=== PATIENT | female | born 1990 | race American Indian/Alaskan Native ===

== ENCOUNTER 2022-02-11 13:25 | Emergency (ER) | payer SELFPAY ==
[2022-02-11] MEDS ORDERED: SODIUM CHLORIDE 0.9% 1000 ML 1,000 ML IV ONE (23:31)
[2022-02-11] MEDS ORDERED: METOCLOPRAMIDE 10 MG/2 ML INJ IV ONE (23:32)
[2022-02-11] MEDS ORDERED: diphenhydrAMINE 50 MG/ML VIAL IV ONE (23:32)
--- NOTE | 2022-02-11 23:37 | Emergency Department Report ---
ED Abdominal Pain HPI - General Chief Complaint: Nausea/Vomiting/Diarrhea Stated Complaint: WEAK/VOMITING/CANT EAT Time Seen by Provider: 02/11/22 23:31 Source: patient Mode of arrival: Ambulatory Limitations: No Limitations - History of Present Illness Initial Comments: Patient is a 32-year-old female G1, who presents for bilateral diabetic by malaise nausea vomiting x1 week. Patient has not seen [facility] did have positive test at home today. Ice menstrual cycle 6 weeks ago. Symptoms are exacerbated by p.o. intake. Symptoms are relieved by nothing tried. Patient denies vaginal bleeding no spotting no frequency urgency or dysuria. Is been no fevers or chills MD Complaint: abdominal pain - Related Data Previous Rx's Medication Instructions Recorded Last Taken Type Metoclopramide [Reglan] 10 mg PO TID #15 tab 02/12/22 Unknown Rx diphenhydrAMINE HCL 12.5 mg PO Q6H PRN #15 tab 02/12/22 Unknown Rx [Diphenhydramine HCl] Allergies Allergy/AdvReac Type Severity Reaction Status Date / Time No Known Allergies Allergy Verified 02/11/22 17:22 ED Review of Systems ROS: Stated complaint: WEAK/VOMITING/CANT EAT Other details as noted in HPI Constitutional: denies: chills, fever Eyes: denies: eye pain, eye discharge, vision change ENT: denies: ear pain, throat pain Respiratory: denies: cough, shortness of breath, wheezing Cardiovascular: denies: chest pain, palpitations Endocrine: no symptoms reported Gastrointestinal: abdominal pain, nausea, vomiting. denies: diarrhea, constipation, hematemesis, melena, hematochezia Genitourinary: denies: urgency, dysuria, frequency, hematuria, discharge, dyspareunia Musculoskeletal: back pain Skin: denies: rash, lesions Neurological: denies: headache, weakness, numbness, paresthesias, confusion, vertigo Psychiatric: denies: anxiety, depression Hematological/Lymphatic: denies: easy bleeding, easy bruising ED Past Medical Hx - Medications Home Medications: Home Medications Medication Instructions Recorded Confirmed Last Taken Type Metoclopramide [Reglan] 10 mg PO TID #15 tab 02/12/22 Unknown Rx diphenhydrAMINE HCL 12.5 mg PO Q6H PRN #15 tab 02/12/22 Unknown Rx [Diphenhydramine HCl] ED Physical Exam - General Limitations: No Limitations General appearance: alert, in no apparent distress - Head Head exam: Present: normocephalic, normal inspection - Eye Eye exam: Present: normal appearance, EOMI Pupils: Present: normal accommodation - ENT ENT exam: Present: mucous membranes moist - Neck Neck exam: Present: normal inspection, full ROM. Absent: tenderness, lymphadenopathy - Respiratory Respiratory exam: Present: normal lung sounds bilaterally. Absent: respiratory distress, stridor, chest wall tenderness - Cardiovascular Cardiovascular Exam: Present: regular rate, normal rhythm, normal heart sounds. Absent: systolic murmur, diastolic murmur, rubs, gallop - GI/Abdominal GI/Abdominal exam: Present: soft, normal bowel sounds. Absent: distended, tenderness, guarding, rebound, rigid - Rectal Rectal exam: Present: deferred - External exam: Present: other (Deferred by patient) - Extremities Exam Extremities exam: Present: normal inspection, full ROM, normal capillary refill. Absent: pedal edema, joint swelling - Back Exam Back exam: Present: normal inspection, full ROM. Absent: CVA tenderness (R), CVA tenderness (L) - Neurological Exam Neurological exam: Present: alert, oriented X3, CN II-XII intact, normal gait, reflexes normal - Expanded Neurological Exam Expanded Patient oriented to: Present: person, place, time Speech: Present: fluid speech Motor strength exam: RUE: 5, LUE: 5, RLE: 5, LLE: 5 Best Eye Response (Rudolph): (4) open spontaneously Best Motor Response (Forest): (6) obeys commands Best Verbal Response (Rudolph): (5) oriented [place] Total: 15 - Psychiatric Psychiatric exam: Present: normal affect, normal mood - Skin Skin exam: Present: warm, dry, intact, normal color. Absent: rash ED Course Vital Signs 02/11/22 02/12/22 17:22 04:57 Temperature 98.6 F 98.9 F Pulse Rate 108 H 86 Respiratory 16 Rate Blood Pressure 124/75 102/46 [Left] O2 Sat by Pulse 99 Oximetry ED Medical Decision Making - Lab Data Result diagrams: 02/11/22 23:48 Labs 02/11/22 02/11/22 23:48 23:48 WBC 8.1 RBC 5.26 H Hgb 14.2 Hct 43.6 H MCV 83 MCH 27 L MCHC 33 RDW 14.2 Plt Count 253 Lymph % (Auto) 14.5 Sumner % (Auto) 7.5 H Eos % (Auto) 0.1 Baso % (Auto) 0.4 Lymph # (Auto) 1.2 Sumner # (Auto) 0.6 Eos # (Auto) 0.0 Baso # (Auto) 0.0 Seg Neutrophils % 77.5 H Seg Neutrophils # 6.2 HCG, Quant 66410 H - Radiology Data Radiology results: report reviewed, image reviewed ULTRASOUND OBSTETRIC INDICATION / CLINICAL INFORMATION: abd pain pos preg. TECHNIQUE: Transabdominal. COMPARISON: None available. FINDINGS: GESTATIONAL SAC: Well-defined oval shape and intrauterine in location. Small implantation bleed YOLK SAC: No significant abnormality. EMBRYO/FETUS: No significant abnormality. - [place]-Rump Length = 0.26 cm = by weeks, 6 day(s). - Heart Rate, beats per minute (if present) = 98 ADNEXA: Several right ovarian follicular cysts, largest of which measures 4 cm. Left ovary within normal limits FREE FLUID: None. ADDITIONAL FINDINGS: None. IMPRESSION: 1. Single, living intrauterine with estimated sonographic age of 5 weeks, 6 day(s). 2. Small implantation bleed. 3. Right ovarian follicular cysts Signer Name: Leonardo Herrera MD Signed: 02/12/2022 4:54 AM Workstation Name: [id number] Transcribed By: TL Dictated By: Leonardo Herrera MD Electronically Authenticated By: Leonardo Herrera MD Signed Date/Time: 02/12/22453 DD/ 1 TD/TT: - Medical Decision Making US OB Single IUP, 5 weeks and 6 days, heart rate 9 8 bpm, small subchori onic bleed, right ovarian cyst. Plan follow-up with [facility] in 1 to 2 days. Pelvic rest. Continue to hydrate. Patient verbalized agreement and understanding with discharge plan. Patient is currently alert oriented x3 tolerating p.o. intake without nausea or vomiting. Patient advises symptoms are resolved to 1/10 at this time.. Critical care attestation.: If time is entered above; I have spent that time in minutes in the direct care of this critically ill patient, excluding procedure time. ED Disposition Clinical Impression: Abdominal pain during intrauterine Disposition: HOME / SELF CARE / HOMELESS Is pt being admited?: No Does the pt Need Aspirin: No Condition: Stable Instructions: Abdominal Pain During , Nzoh-ju-Maci Additional Instructions: Take medications as prescribed, follow-up with your doctor in 2 to 3 days. Return to emergency department should symptoms worsen. Prescriptions: diphenhydrAMINE HCL [Diphenhydramine HCl] 12.5 mg PO Q6H PRN #15 tab PRN Reason: nausea and vomiting Metoclopramide [Reglan] 10 mg PO TID #15 tab Referrals: NIALL CHARLES MD [Staff Physician] - 3-5 Days Forms: Work/School Release Form(ED) Time of Disposition: 05:10
[2022-02-12 00:12] LABS: Basophils % (Auto) 0.4 % (0.0-1.8); Eosinophils % (Auto) 0.1 % (0.0-4.3); Hematocrit 43.6 % (30.3-42.9); Hemoglobin 14.2 gm/dl (10.1-14.3); Lymphocytes # (Auto) 1.2 K/mm3 (1.2-5.4); Lymphocytes % (Auto) 14.5 % (13.4-35.0); Mean Corpuscular HGB Conc 33 % (30-34); Mean Corpuscular Volume 83 fl (79-97); Monocytes # (Auto) 0.6 K/mm3 (0.0-0.8); Monocytes % (Auto) 7.5 % (0.0-7.3); Platelet Count 253 K/mm3 (140-440); Red Blood Count 5.26 M/mm3 (3.65-5.03); Red Cell Distribution Width 14.2 % (13.2-15.2)
[2022-02-12 04:57] VITALS: BP 102/46
--- NOTE | 2022-02-12 04:59 | Ultrasound Report ---
ULTRASOUND OBSTETRIC INDICATION / CLINICAL INFORMATION: abd pain pos preg. TECHNIQUE: Transabdominal. COMPARISON: None available. FINDINGS: GESTATIONAL SAC: Well-defined oval shape and intrauterine in location. Small implantation bleed YOLK SAC: No significant abnormality. EMBRYO/FETUS: No significant abnormality. - [place]-Rump Length = 0.26 cm = by weeks, 6 day(s). - Heart Rate, beats per minute (if present) = 98 ADNEXA: Several right ovarian follicular cysts, largest of which measures 4 cm. Left ovary within nor mal limits FREE FLUID: None. ADDITIONAL FINDINGS: None. IMPRESSION: 1. Single, living intrauterine with estimated sonographic age of 5 weeks, 6 day(s). 2. Small implantation bleed. 3. Right ovarian follicular cysts Signer Name: Leonardo Herrera MD Signed: 02/12/2022 4:54 AM Workstation Name: [id number]
== END 2022-02-12 05:36 | disposition home or self-care (01) ==
LOC: ED 13:25
DX: O26.891 Other specified pregnancy related conditions, first trimester (principal); R10.9 Unspecified abdominal pain; Z3A.01 Less than 8 weeks gestation of pregnancy
CPT/HCPCS: 36415; 76801; 84702; 85025; 96361; 96374; 96375; 99284; J1200; J2765; J7030

== ENCOUNTER 2022-02-17 15:19 | Emergency (ER) | payer BC ==
[2022-02-17 16:17] LABS: Basophils % (Auto) 0.6 % (0.0-1.8); Eosinophils % (Auto) 0.4 % (0.0-4.3); Hemoglobin 14.6 gm/dl (10.1-14.3); Lymphocytes # (Auto) 1.1 K/mm3 (1.2-5.4); Lymphocytes % (Auto) 13.6 % (13.4-35.0); Mean Corpuscular HGB Conc 33 % (30-34); Mean Corpuscular Volume 82 fl (79-97); Monocytes # (Auto) 0.7 K/mm3 (0.0-0.8); Monocytes % (Auto) 9.1 % (0.0-7.3); Platelet Count 254 K/mm3 (140-440); Red Blood Count 5.36 M/mm3 (3.65-5.03); Red Cell Distribution Width 13.8 % (13.2-15.2)
[2022-02-17 16:46] LABS: Albumin 5.1 g/dL (3.9-5); Bilirubin,Direct 0.3 mg/dL (0-0.2)
[2022-02-17 16:47] LABS: Alanine Aminotransferase 10 units/L (7-56); Albumin 5.1 g/dL (3.9-5); Blood Urea Nitrogen 10 mg/dL (7-17); Calcium 9.9 mg/dL (8.4-10.2); Hemolysis Index 5
[2022-02-17 16:49] LABS: BUN/Creatinine Ratio 17
[2022-02-17 19:14] LABS: Bilirubin,Urine NEG (Negative); Blood,Urine NEG (Negative); Color,Urine Amber (Yellow)
[2022-02-17 19:15] LABS: Mucus,Urine 1+ /HPF; RBC,Urine < 1.0 /HPF (0.0-6.0)
[2022-02-17 20:30] VITALS: BP 113/76
[2022-02-17] MEDS ORDERED: SODIUM CHLORIDE 0.9% 1000 ML 1,000 ML IV ONE (20:50)
[2022-02-17] MEDS ORDERED: METOCLOPRAMIDE 10 MG/2 ML INJ IV STA (20:55)
[2022-02-17] MEDS ORDERED: diphenhydrAMINE 50 MG/ML VIAL IV STA (20:55)
[2022-02-17] MEDS ORDERED: PYRIDOXINE 50 MG TAB PO STA (21:05)
[2022-02-17] MEDS: PYRIDOXINE 50 MG TAB PO SCH ×2 (21:48→21:50)
--- NOTE | 2022-02-17 23:45 | Emergency Department Report ---
ED General Adult HPI - General Chief complaint: Nausea/Vomiting/Diarrhea Stated complaint: VOMITTING/WEAKNESS Time Seen by Provider: 02/17/22 20:22 Source: patient Mode of arrival: Ambulatory Limitations: No Limitations - History of Present Illness -: Gradual Severity scale (0 -10): 0 Quality: dull Consistency: constant Improves with: none Worsens with: none Associated Symptoms: denies other symptoms. denies: cough, diaphoresis, loss of appetite, malaise, nausea/vomiting, shortness of breath, syncope, weakness - Related Data Previous Rx's Medication Instructions Recorded Last Taken Type Metoclopramide [Reglan] 10 mg PO TID #15 tab 02/12/22 Unknown Rx diphenhydrAMINE HCL 12.5 mg PO Q6H PRN #15 tab 02/12/22 Unknown Rx [Diphenhydramine HCl] Doxylamine Succinate/Vit B6 1 each PO BID #30 02/18/22 Unknown Rx [Diclegis Dr 10-10 mg Tablet] Allergies Allergy/AdvReac Type Severity Reaction Status Date / Time No Known Allergies Allergy Verified 02/11/22 17:22 ED Review of Systems ROS: Stated complaint: VOMITTING/WEAKNESS Other details as noted in HPI Comment: All other systems reviewed and negative ED Past Medical Hx - Past Medical History Previous Medical History?: No - Surgical History Past Surgical History?: No - Social History Smoking Status: Never Smoker - Medications Home Medications: Home Medications Medication Instructions Recorded Confirmed Last Taken Type Metoclopramide [Reglan] 10 mg PO TID #15 tab 02/12/22 Unknown Rx diphenhydrAMINE HCL 12.5 mg PO Q6H PRN #15 tab 02/12/22 Unknown Rx [Diphenhydramine HCl] Doxylamine Succinate/Vit B6 1 each PO BID #30 02/18/22 Unknown Rx [Diclegis Dr 10-10 mg Tablet] ED Physical Exam - General Limitations: No Limitations General appearance: alert, in no apparent distress - Head Head exam: Present: atraumatic, normocephalic - Eye Eye exam: Present: normal appearance Pupils: Present: normal accommodation - ENT ENT exam: Present: normal exam, normal orophraynx, mucous membranes moist, TM's normal bilaterally - Neck Neck exam: Present: normal inspection, full ROM - Respiratory Respiratory exam: Present: normal lung sounds bilaterally. Absent: respiratory distress, rales, rhonchi, accessory muscle use, decreased breath sounds - Cardiovascular Cardiovascular Exam: Present: regular rate, normal rhythm. Absent: systolic murmur, diastolic murmur, rubs, gallop - GI/Abdominal GI/Abdominal exam: Present: soft, tenderness (Suprapubic region. Adnexa), normal bowel sounds - Extremities Exam Extremities exam: Present: normal inspection, normal capillary refill - Back Exam Back exam: Present: normal inspection, full ROM. Absent: CVA tenderness (R), CVA tenderness (L) - Neurological Exam Neurological exam: Present: alert, oriented X3, CN II-XII intact - Psychiatric Psychiatric exam: Present: normal affect, normal mood - Skin Skin exam: Present: warm, dry, intact, normal color. Absent: rash ED Course Vital Signs 02/17/22 02/17/22 02/17/22 15:37 20:18 20:29 Temperature 97.9 F 98.8 F Pulse Rate 101 H 87 Respiratory 16 16 Rate Blood Pressure 119/76 Blood Pressure 113/76 [Left] O2 Sat by Pulse 98 100 98 Oximetry ED Medical Decision Making - Lab Data Result diagrams: 02/17/22 15:57 02/17/22 15:50 Critical care attestation.: If time is entered above; I have spent that time in minutes in the direct care of this critically ill patient, excluding procedure time. ED Disposition Condition: Stable
--- NOTE | 2022-02-18 00:56 | Ultrasound Report ---
ULTRASOUND OBSTETRIC INDICATION / CLINICAL INFORMATION: Vaginal bleeding pain. Beta-hCG 76,346 Clinical Gestational Age (GA) in weeks, days: TECHNIQUE: Transabdominal. COMPARISON: OB ultrasound 02/11/2022 FINDINGS: Single intrauterine gestational sac is present containing yolk sac and pole. A small subchorion ic hemorrhage is present. This measures 0.7 x 0.4 x 0.5 cm and is stable compared to previous study. heart rate is 125 bpm. Mean crown-rump length of 4.7 mm correlates with an estimated gestational age of 6 weeks 1 day, EDC . Clinical estimate of gestational age based on LMP of 01/04/2022 is 6 weeks 2 days. The right ovary measures 6.6 x 4.8 x 8.4 cm. Multiple thin-walled right ovarian cysts are demonstrate d the largest measuring 3.8 x 3.2 x 3.7 cm second largest measuring 3.3 x 2.2 x 2.7 cm. A third lesio n measuring 3.2 x 4.4 x 3.1 cm is demonstrated. Color flow is present within the right ovary. No spec tral waveforms could be obtained. Left ovary measures 4.5 x 2.1 x 1.9 cm and demonstrates no significant abnormality. No free fluid is noted within the pelvis. IMPRESSION: 1. Single, living intrauterine with estimated sonographic age of 6 weeks 1 day weeks, days. Compared to earlier OB ultrasound, appropriate interval growth is suggested. 2. Small stable subchorionic hemorrhage. 3. Polycystic right ovary, thin-walled cysts, stable. Signer Name: Albert Pollack II, MD Signed: 02/18/2022 12:52 AM Workstation Name: [id number]
== END 2022-02-18 01:13 | disposition home or self-care (01) ==
LOC: ED 15:19
DX: R11.2 Nausea with vomiting, unspecified (principal); R19.7 Diarrhea, unspecified
CPT/HCPCS: 36415; 76801; 80053; 80076; 81001; 81025; 83690; 84702; 85025; 96361; 96374; 96375; 99284; J1200; J2765; J7030